=== PATIENT | male | born 2000 | race Caucasian/White ===

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

== ENCOUNTER 2024-09-23 16:20 | Emergency (ER) | payer BC, MEDICAID ==
[2024-09-23] MEDS ORDERED: Sodium Chloride 0.9% 10 ML Syringe FLUSH PRN (17:06)
[2024-09-23 17:18] LABS: BASOPHILS ABSOLUTE AUTO 0.03 K/uL (0.02-0.10); BASOPHILS PERCENT AUTO 0.3 % (0.0-0.5); EOSINOPHILS ABSOLUTE AUTO 0.02 K/uL (0.04-0.40); EOSINOPHILS PERCENT AUTO 0.2 % (1.0-5.0); HEMATOCRIT 45.9 % (40.0-54.0); HEMOGLOBIN 15.9 g/dL (13.0-18.0); LYMPHOCYTES ABSOLUTE AUTO 1.59 K/uL (1.50-4.00); LYMPHOCYTES PERCENT AUTO 13.9 % (20.0-40.0); MEAN CORPUSCULAR HEMOGLOBIN 30.2 pg (27.0-32.0); MEAN CORPUSCULAR HGB CONC 34.6 g/dL (31.0-35.0); MEAN CORPUSCULAR VOLUME 87 fL (76-96); MEAN PLATELET VOLUME 10.2 fL (6.0-10.0); MONOCYTES ABSOLUTE AUTO 0.91 K/uL (0.20-0.80); NEUTROPHILS ABSOLUTE AUTO 8.87 K/uL (2.00-7.50); NEUTROPHILS PERCENT AUTO 77.6 % (45.0-70.0); PLATELET COUNT,PLT 284 K/uL (150-400); RED BLOOD CELL COUNT 5.26 M/uL (4.50-6.50); RED CELL DISTRIBUTION WIDTH 12.5 % (11.0-16.0); WHITE BLOOD CELL COUNT,WBC 11.4 K/uL (4.0-11.0)
[2024-09-23] MEDS: Ketorolac 30 MG/ML SDV IVPUSH ONE (17:20)
[2024-09-23 17:33] LABS: ANION GAP 14.1 mmol/L (5.0-15.0); BUN/CREATININE RATIO 9.7 (6-25); CALCIUM 9.1 mg/dL (8.5-10.1); CARBON DIOXIDE,CO2 26.8 mmol/L (21.0-32.0); CREATININE 1.13 mg/dL (0.70-1.30); EST CRCL DRUG DOSING (CG) 112.94 mL/min; POTASSIUM,K 3.9 mmol/L (3.5-5.1)
[2024-09-23 17:39] LABS: INFLUENZA A NAA NEGATIVE (NEGATIVE); INFLUENZA B NAA NEGATIVE (NEGATIVE); RESPIRATORY SYNCYTIAL VIR NAA NEGATIVE (NEGATIVE)
[2024-09-23 17:40] LABS: CORONAVIRUS COVID-19 NAA NEGATIVE (NEGATIVE)
[2024-09-23] MEDS: Ketorolac 30 MG/ML SDV ONE (17:53)
[2024-09-23] MEDS: cefTRIAXone 500 MG Vial IVPUSH ONE (18:23)
[2024-09-23] MEDS: Lidocaine 1% 10 ML MDV IVPUSH ONE (18:23)
[2024-09-23] MEDS: cefTRIAXone 1 GM Vial ONE (18:27)
== END 2024-09-23 18:36 | disposition home or self-care (01) ==
LOC: LB.ED 16:20
DX: G43.909 Migraine, unspecified, not intractable, without status migrainosus (principal); J32.9 Chronic sinusitis, unspecified
CPT/HCPCS: 0241U; 36415; 70450; 80048; 85025; 87651-QW; 96374; 96375; 99284-25; J0696; J1885